=== PATIENT | male | born 1995 | race Two or more races ===

== ENCOUNTER 2017-01-18 23:38 | Emergency (ER) | payer SELFPAY ==
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
== END 2017-01-19 01:11 | disposition home or self-care (01) ==
LOC: ED 23:38
DX: S62.337A Displaced fracture of neck of fifth metacarpal bone, left hand, initial encounter for closed fracture (principal); W51.XXXA Accidental striking against or bumped into by another person, initial encounter; Y93.71 Activity, boxing; Y92.9 Unspecified place or not applicable